=== PATIENT | female | born 1985 | race American Indian/Alaskan Native ===

== ENCOUNTER 2021-07-29 12:48 | Outpatient (CLI) | payer MEDICAID ==
[2021-07-29] MEDS ORDERED: LACTATED RINGERS 1,000 ML IV ONE (13:30)
[2021-07-29 13:31] VITALS: BP 128/67
[2021-07-29 14:07] LABS: Bilirubin,Urine NEG (Negative); Blood,Urine MOD (Negative); Color,Urine Straw (Yellow); Mucus,Urine FEW /HPF; Protein,Urine <15 mg/dL mg/dL (Negative); Urobilinogen,Urine < 2.0 mg/dL (<2.0)
--- NOTE | 2021-07-29 16:33 | Ultrasound Report ---
ULTRASOUND OBSTETRIC LIMITED INDICATION / CLINICAL INFORMATION: PINK SPOTTING - WELL BEING AND PLACENTA LOCA. TECHNIQUE: Transabdominal ultrasound imaging. COMPARISON: None available. FINDINGS: HEART RATE (beats per minute): 159 AMNIOTIC FLUID INDEX (cm) = 13.7 PRESENTATION: Cephalic. ADDITIONAL FINDINGS: The placenta is fundal, left lateral, grade 2. No abruption is appreciated. IMPRESSION: No evidence for abruption. Signer Name: Stan Starr Jr, MD Signed: 07/29/2021 4:29 PM Workstation Name: [id number]
[2021-07-29] MEDS ORDERED: LIDOCAINE-MPF (1%) 10 MG/1 ML VIAL 5 ML INFILTRATI ONE (17:00)
== END 2021-07-29 16:58 | disposition home or self-care (01) ==
LOC: TRG 12:48 → APU 12:50 → TRG 16:58
PROVIDERS: ATTEND Obstetrics & Gynecology
DX: O46.93 Antepartum hemorrhage, unspecified, third trimester (principal); Z3A.36 36 weeks gestation of pregnancy
CPT/HCPCS: 59025; 76815; 81001; 87086; 96360; J7120; 96361